=== PATIENT | male | born 1955 | race Caucasian/White ===

== ENCOUNTER → 2020-01-06 | Outpatient (CLI) | payer OTHER | LOC: SJCVCIMAG 16:29 | PROVIDERS: ATTEND Internal Medicine Cardiovascular Disease | DX: I48.0 Paroxysmal atrial fibrillation (principal); I11.9 Hypertensive heart disease without heart failure; E78.00 Pure hypercholesterolemia, unspecified ==

== ENCOUNTER 2021-02-25 11:04 | Inpatient (IN) | payer OTHER ==
[~2021-02-25] VITALS: Ht 177.8 cm; Wt 117.9 kg
[2021-02-25 11:41] VITALS: BP 148/84
[2021-02-25 12:11] LABS: ABSOLUTE NEUTROPHILS 11.6 thou/uL (1.4-8.2); BASOPHILS 0.2 % (0.0-2.0); EOSINOPHILS 0.1 % (0.0-3.0); HEMATOCRIT 43.7 % (42.0-52.0); HEMOGLOBIN 13.8 gm/dL (14.0-18.0); MCH 21.6 pg (26.0-34.0); MCHC 31.7 g/dL (28.0-37.0); MCV 68.3 fL (80.0-100.0); MONOCYTES 9.6 % (1.0-8.0); PLATELET COUNT 226 thou/uL (150-400); POLYS 83.1 % (36.0-66.0); RBC 6.39 mil/uL (4.50-6.00); RDW 15.9 % (10.5-14.5)
[2021-02-25 12:22] LABS: CREATININE 1.9 mg/dL (0.7-1.3); POTASSIUM 4.3 mmol/L (3.5-5.1)
[2021-02-25 12:29] LABS: ALBUMIN 3.6 g/dL (3.4-5.0); DIRECT BILIRUBIN 0.2 mg/dL (<0.1-0.2); TOTAL BILIRUBIN 1.4 mg/dL (0.2-1.0); TOTAL PROTEIN 8.1 g/dL (6.4-8.2)
[2021-02-25 15:12] LABS: URINE BILIRUBIN NEGATIVE (Negative); URINE BLOOD 3+ (Negative); URINE CLARITY CLEAR; URINE COLOR YELLOW; URINE GLUCOSE-RANDOM* NEGATIVE (Negative); URINE KETONES NEGATIVE (Negative); URINE LEUKOCYTES-REFLEX TRACE (Negative); URINE NITRITE-REFLEX NEGATIVE (Negative); URINE PROTEIN (DIPSTICK) NEGATIVE (Negative); URINE SPECIFIC GRAVITY <= 1.005 (1.005-1.035); URINE UROBILINOGEN 0.2 E.U./dl (0.2-1.0)
[2021-02-25 15:23] LABS: BACTERIA-REFLEX 1-9 Few /HPF (None Seen); SQUAMOUS None Seen /LPF (0-3); URINE RBC >20 Many /HPF (NONE SEEN); URINE WBC-REFLEX 6-15 Few /HPF (0-5)
[2021-02-25] MEDS ORDERED: SILDENAFIL CIT100 MG PO ×2 (15:32)
[2021-02-25] MEDS ORDERED: TESTIM5 GM TOP ×2 (15:33)
[2021-02-25] MEDS ORDERED: TAMBOCOR 100 M100 M1 PO ×2 (15:33)
[2021-02-25] MEDS ORDERED: TRAZODONE HCL50 MG PO ×2 (15:33)
[2021-02-25] MEDS ORDERED: METOPROLOL SUC100 MG PO ×2 (15:33)
[2021-02-25] MEDS ORDERED: IRBESARTAN300 MG PO ×2 (15:34)
[2021-02-25] MEDS ORDERED: DEMADEX20 MG PO ×2 (15:34)
[2021-02-25 19:05] VITALS: BP 134/91
[2021-02-25 19:30] VITALS: BP 118/72
[2021-02-25 19:32] VITALS: BP 120/78
[2021-02-26] VITALS: BP 144/76
[2021-02-26 04:50] LABS: HEMATOCRIT 38.6 % (42.0-52.0); HEMOGLOBIN 12.4 gm/dL (14.0-18.0); MCH 22.1 pg (26.0-34.0); MCHC 32.1 g/dL (28.0-37.0); MCV 68.7 fL (80.0-100.0); RBC 5.61 mil/uL (4.50-6.00); WBC 8.5 thou/uL (4.0-11.0)
[2021-02-26 05:03] LABS: CALCIUM 8.3 mg/dL (8.5-10.1); CREATININE 1.5 mg/dL (0.7-1.3); MAGNESIUM 2.1 mg/dL (1.8-2.4); POTASSIUM 4.3 mmol/L (3.5-5.1)
[2021-02-26 07:29] VITALS: BP 139/86
[2021-02-26 07:35] VITALS: BP 158/97
--- NOTE | 2021-02-26 09:08 | NUR ---
ASSUMED CARE AT 2030, PT ARRIVED FROM THE ED, REPORTS NO PAIN OR DISCOMFORT, ORIENTED TO STAFF, AND ROOM. COMPLIANT TO TX, NO ADVERSE REACTION NOTED, REPORTS SLEEPY, ADMISSION ASSESMENTS COMPLETED, PT LAYING COMFORTABLY IN BED ICED WATER ON THE BEDSIDE TABLE, VOICES NO NEEDS AT THIS TIME, DECLINE URGE TO USE THE BATHROOM. WILL COBNTINUE TO MONITOR.
[2021-02-26 12:18] VITALS: BP 132/96
[2021-02-26 15:37] VITALS: BP 143/94
--- NOTE | 2021-02-26 16:20 | NUR ---
Assumed pt care at 7am. Pt in bed wanted to eat and drink. Assessment completed.vss but elevated bp and hr noted. Am meds given and well tolerated. Dr Baer and Carissa here,order noted. Urology rounded on pt later this am and wanted iv pain med dc and start po pain med. Pt denied urology procedure but wanted to go home to pass kidney stone. here to visit. Updates given. Will continue to monitor.
[2021-02-26] MEDS ORDERED: FLOMAX0.4 MG PO ×2 (18:36)
[2021-02-26] MEDS ORDERED: PERCOCET 5-3251 EACH PO ×2 (18:36)
[2021-02-26] MEDS ORDERED: XARELTO20 MG PO ×2 (18:36)
[2021-02-26 18:49] VITALS: BP 143/94
--- NOTE | 2021-02-27 07:26 | EKG ---
[address] [address] ELECTROCARDIOGRAM REPORT Name: CHELSEA WARD Room #: 451-P [facility] IN ..#: [id number] Admission: 02/25/21 Attend Phys: Victoriano Horner MD Discharge: 02/26/21 Date of : 55 Report #: [id number] [facility] ED Test Date: 2021-02-25 Test Time: 11:46:07 Pat Name: CHELSEA WARD Department: Room: [facility] Gender: M Academic Director: : 1955 Requested By: Wallace Atkinson Order Number: [id number] MD: Leobardo Penn Measurements Intervals [place] Rate: 115 P: [place]: QRS: 28 QRSD: 106 T: 17 QT: 328 QTc: 454 Interpretive Statements Atrial fibrillation Low voltage, extremity leads Probable anteroseptal infarct, old Compared to ECG 08/21/2006 14:22:09 Low QRS voltage now present Myocardial infarct finding now present Sinus tachycardia no longer present Electronically Signed On 02-27-2021 7:26:28 CDT by Leobardo Penn [email or web address] <ELECTRONICALLY SIGNED> By: Leobardo Penn MD, FACC 02/27/21 0726 1146 1146 Leobardo Penn MD, FAC /EPI
== END 2021-02-26 19:15 | disposition home or self-care (01) | DRG 690 ==
LOC: ER 11:04 → 4W 19:53
PROVIDERS: Student in an Organized Health Care Education/Training Program; ADMIT Internal Medicine; ATTEND Internal Medicine
DX: N13.6 Pyonephrosis (principal); R65.10 Systemic inflammatory response syndrome (SIRS) of non-infectious origin without acute organ dysfunction; I13.0 Hypertensive heart and chronic kidney disease with heart failure and stage 1 through stage 4 chronic kidney disease, or unspecified chronic kidney disease; N17.9 Acute kidney failure, unspecified; R74.01 Elevation of levels of liver transaminase levels; I48.0 Paroxysmal atrial fibrillation; E78.5 Hyperlipidemia, unspecified; I50.9 Heart failure, unspecified; N18.30 Chronic kidney disease, stage 3 unspecified; Z20.822 Contact with and (suspected) exposure to COVID-19; Z79.899 Other long term (current) drug therapy; Z79.01 Long term (current) use of anticoagulants
CPT/HCPCS: 10040

== ENCOUNTER → 2021-02-28 | Outpatient (CLI) | payer OTHER ==
[~2021-02-28] MED LIST: DEMADEX20 MG PO; FLOMAX0.4 MG PO; IRBESARTAN300 MG PO; METOPROLOL SUC100 MG PO; PERCOCET 5-3251 EACH PO; SILDENAFIL CIT100 MG PO; TAMBOCOR 100 M100 M1 PO; TESTIM5 GM TOP; TRAZODONE HCL50 MG PO; XARELTO20 MG PO
== END ==
LOC: SJCVCIMAG
PROVIDERS: ATTEND Internal Medicine Cardiovascular Disease
DX: I35.8 Other nonrheumatic aortic valve disorders (principal); I48.0 Paroxysmal atrial fibrillation

== ENCOUNTER → 2021-03-01 | Outpatient (CLI) | payer OTHER ==
[~2021-03-01] VITALS: Ht 177.8 cm; Wt 119.5 kg
[2021-03-01 07:27] VITALS: BP 133/77
--- NOTE | 2021-03-01 08:36 | EKG ---
[address] [place] [address] [facility] [place] [address] ELECTROCARDIOGRAM REPORT Name: CHELSEA WARD Room #: REG [facility]#: [id number] Admission: 03/01/21 Attend Phys: Leobardo Penn MD, Discharge: Date of : 55 Report #: [id number] [facility] Test Date: 2021-03-01 Test Time: 08:26:12 Pat Name: CHELSEA WARD Department: Room: Gender: M Summer Child Caregiver: [facility] : 1955 Requested By: Leobardo Penn Order Number: [id number] MD: Michele Ibrahim Measurements Intervals [place] Rate: 85 P: 39 CT: 211 QRS: 24 QRSD: 107 T: 30 QT: 386 QTc: 459 Interpretive Statements Sinus rhythm Low voltage, extremity leads Anteroseptal infarct, old Compared to ECG 02/25/2021 11:46:07 Atrial fibrillation no longer present Electronically Signed On 03-01-2021 8:35:58 CDT by Michele Ibrahim [email or web address] <ELECTRONICALLY SIGNED> By: Michele Ibrahim MD, [facility] 03/01/21 0835 5 5 Michele Ibrahim MD, [facility] /EPI
--- NOTE | 2021-03-01 09:46 | TEE ---
[facility] [place] [address] TRANSESOPHAGEAL ECHOCARDIOGRAM Name: CHELSEA WARD Room #: REG [facility]#: [id number] Admission: 03/01/21 Attend Phys: Leobardo Penn MD, Discharge: Date of : 55 Report #: [id number] THIS REPORT FOR: cc: Gael Varner MD, James A. MD Santiago, Patrick MD [facility] ~ APPROVED REPORT Study performed: 03/01/2021 07:55:26 EXAM: Comprehensive 2D, Doppler, and color-flow Echocardiogram Patient Location: Out-Patient Room #: 9 Status: routine BSA: 2.34 HR: 108 bpm BP: 139/96 mmHg Rhythm: Atrial Fibrillation Other Information Study Quality: Good Indications Atrial Fibrillation Echo Enhancing Agent Indication: Rule out Shunt Agent(s) / Amount(s) Used: Agitated Saline 7 cc Procedure After obtaining informed consent, patient underwent transesophageal echo in the [employer]. Type of Sedation : Conscious Sedation Sedation was administered by Nurse. Sedation start time: 0800 Case end Time: 0810 Sedation was achieved intravenously with: Versed (7mg) Fentanyl (100mcg) Transesophageal probe was inserted and advanced into esophagus without difficulty by Leobardo Penn MD. Echo enhancement indication: R/O Septal defect. Echo enhancement agent administered: Agitated Saline The JACINTO was performed without complications. Synchronized Cardioversion acheived with 200 Joules after 1 [facility] [address] [place] [address] TRANSESOPHAGEAL ECHOCARDIOGRAM Name: CHELSEA WARD Room #: REG CL [facility]#: [id number] Admission: 03/01/21 Attend Phys: Leobardo Penn, Discharge: Date of : 55 Report #: [id number] attempt(s). Rhythm following Synchronized Cardioversion: Normal Sinus Rhythm Throughout the procedure, the blood pressure, pulse oximetry, cardiac rhythm, and rate were monitored. The patient tolerated the procedure without adverse effects. Recovery from conscious sedation was uneventful and vital signs were stable. Left Ventricle The left ventricle is normal size. There is normal left ventricular wall thickness. The left ventricular systolic function is normal. The left ventricular ejection fraction is within the normal range. LVEF is 60%. Right Ventricle The right ventricle is normal size. The right ventricular systolic function is normal. Atria Left atrium is at the upper limits of normal. Injection of contrast documented no interatrial shunt. The right atrium size is normal. Aortic Valve The aortic valve is normal in structure. No aortic regurgitation is present. There is no aortic valvular stenosis. Mitral Valve The mitral valve is normal in structure. Trace to mild mitral regurgitation. No evidence of mitral valve stenosis. Tricuspid Valve The tricuspid valve is normal in structure. There is no tricuspid valve regurgitation noted. Pulmonic Valve The pulmonary valve is normal in structure. There is no pulmonic valvular regurgitation. Great Vessels The aortic root is normal in size. Pericardium There is no pericardial effusion. <Conclusion> [facility] [address] [place] [address] TRANSESOPHAGEAL ECHOCARDIOGRAM Name: CHELSEA WARD Room #: REG [facility]#: [id number] Admission: 03/01/21 Attend Phys: Leobardo Penn, Discharge: Date of : 55 Report #: [id number] Consent was obtained Timeout was performed After proper sedation esophageal probe was advanced without difficulty Left atrial appendage; no obvious mass or clot detected Normal left ventricle size/wall thickness Ejection fraction 60% Normal right ventricle size/function Normal atrial size Normal aortic valve structure and function Trace mitral valve insufficiency No tricuspid valve insufficiency No evidence of ASD/VSD by color flow/bubble study Minimal calcification throughout the aorta Patient converted to sinus rhythm after 200 J/ biphasic mode Patient tolerated the procedure well Twelve-lead ECG pending <ELECTRONICALLY SIGNED> By: Leobardo Penn MD, FACC 03/01/2145 4 4 Leobardo Penn MD, FACC /INF
== END | disposition home or self-care (01) ==
LOC: CATH 06:22
PROVIDERS: ATTEND Internal Medicine
DX: I48.91 Unspecified atrial fibrillation (principal); I34.9 Nonrheumatic mitral valve disorder, unspecified; I10 Essential (primary) hypertension; E78.5 Hyperlipidemia, unspecified; G47.30 Sleep apnea, unspecified; E66.9 Obesity, unspecified; Z98.890 Other specified postprocedural states; Z79.899 Other long term (current) drug therapy; Z79.01 Long term (current) use of anticoagulants; Z79.891 Long term (current) use of opiate analgesic

== ENCOUNTER → 2021-04-11 | Outpatient (CLI) | payer OTHER | LOC: CAT 10:38 | PROVIDERS: ATTEND Internal Medicine Cardiovascular Disease | DX: Z13.6 Encounter for screening for cardiovascular disorders (principal); I25.10 Atherosclerotic heart disease of native coronary artery without angina pectoris; E78.00 Pure hypercholesterolemia, unspecified ==